=== PATIENT | male | born 1970 | race Caucasian/White ===

== ENCOUNTER 2022-10-23 21:55 | Emergency (ER) | payer SELFPAY ==
[2022-10-23 22:52] VITALS: BP 167/93; PULSE 93; RESP 20; TEMP 36.2; O2SAT 98; BMI 29.0
--- NOTE | 2022-10-24 00:22 | ED.ANXIETY ---
HPI - Anxiety General Chief Complaint: Anxiety Stated Complaint: Anxiety Time Seen by Provider: 10/24/22 00:22 History of Present Illness HPI narrative: Patient is a 52-year-old gentleman who is going through a very difficult time with his father who is in a psychiatric facility. Patient has been extremely anxious but has not had any suicidal or homicidal ideation. He has not been using any excessive drugs or alcohol. He was seen at [place] [id number] several days gone given a small amount of Ativan the take b.i.d. and that has been very helpful. He does take Seroquel 200 mg twice a day. Patient states that he has psychiatry appointments coming up this coming week. He has no pain no injuries and otherwise feels well. Related Data Home Medications Medication Instructions Recorded Confirmed lorazepam 0.5 mg tablet (Ativan) 0.5 mg PO Q6H PRN 10/23/22 10/23/22 quetiapine 200 mg tablet (Seroquel) 200 mg PO QHS 10/23/22 10/23/22 Allergies Allergy/AdvReac Type Severity Reaction Status Date / Time No Known Drug Allergies Allergy Verified 10/23/22 22:48 Review of Systems Status of ROS: Reports: 10 or more systems reviewed and unremarkable except as noted in History and below [facility] Social History Smoking Status: Never smoker How often do you have a drink containing alcohol: never AUDIT-C Alcohol total score: 0 Non-prescribed substance use: denies use Exam Narrative: Exam Narrative: EXAM GENERAL: Patient appears comfortable and well. EYES: No scleral icterus. LYMPH: No supraclavicular or cervical lymphadenopathy. SKIN: Visible skin seen during exam normal or with benign process only. EXT: No dependent lower extremity pedal edema. HEART: Regular rate and rhythm with no murmurs, rubs, or gallops. LUNGS: Clear to auscultation bilaterally with no crackles or wheezes. ABD: Soft, non tender, non distended. PSYCH: Good eye contact, speech is not pressured. Const: Vital Signs, click to edit/add: Vital Signs - 24 hr 10/23/22 22:52 Temperature 97.1 F L Pulse Rate [Right Pulse Oximeter] 93 Respiratory Rate 20 Blood Pressure [Ri ght Upper Arm] 167/93 H Pulse Oximetry 98 Oxygen Delivery Me thod Room Air Course Course ED Course: Patient seen and examined. Vital Signs Vital signs: Initial Vital Signs Temperature 97.1 F L 10/23/22 22:52 Temperature Source Temporal Artery Scan 10/23/22 22:52 Pulse Rate 93 10/23/22 22:52 Pulse Rhythm Regular 10/23/22 22:52 Respiratory Rate 20 10/23/22 22:52 Blood Pressure 167/93 H 10/23/22 22:52 Blood Pressure Mean 117 H 10/23/22 22:52 Blood Pressure Position Sitting 10/23/22 22:52 Pulse Oximetry 98 10/23/22 22:52 Oxygen Delivery Method Room Air 10/23/22 22:52 Vital Signs Temperature 97.1 F L 10/23/22 22:52 Pulse Rate 93 10/23/22 22:52 Respiratory Rate 20 10/23/22 22:52 Blood Pressure 167/93 H 10/23/22 22:52 Pulse Oximetry 98 10/23/22 22:52 Oxygen Delivery Method Room Air 10/23/22 22:52 Temperature 97.1 F L 10/23/22 22:52 Pulse Rate 93 10/23/22 22:52 Respiratory Rate 20 10/23/22 22:52 Blood Pressure 167/93 H 10/23/22 22:52 Pulse Oximetry 98 10/23/22 22:52 Oxygen Delivery Method Room Air 10/23/22 22:52 MDM - Anxiety MDM Narrative Medical decision making narrative: Patient is a 52-year-old gentleman who is not suicidal or homicidal but is going through a very difficult time. He is looking for some bridging anxiolytics to get him through to his psychiatry appointment in the next several days. Patient is accompanied by his daughter who is very supportive. He is not interested in hurting himself or overdosing. I do think it is reasonable to give him Ativan 0.5 mg b.i.d. p.r.n. for the next 5-7 days well we get him in to see Psychiatry. He will return if symptoms worsen. Differential Diagnosis Differential diagnosis: Likely hyperventilation, panic disorder and acute anxiety Discharge Plan Discharge Clinical Impression: Acute anxiety Condition: Stable Instructions: Anxiety (ED) Additional Instructions: Ativan as directed Outpatient follow-up as directed Continue current medications. Activity Level: No Restrictions Discharge Diet: Regular Prescriptions: No Action quetiapine [Seroquel] 200 mg tablet 200 mg PO QHS lorazepam [Ativan] 0.5 mg tablet 0.5 mg PO Q6H PRN Stand Alone Forms: [employer] Info Instructions
== END 2022-10-24 00:52 | disposition home or self-care (01) ==
LOC: ED 10-24 00:38
PROVIDERS: Emergency Provider Internal Medicine
DX: F41.9 Anxiety disorder, unspecified (principal)
CPT/HCPCS: 99283; 99284

== ENCOUNTER 2022-10-24 09:31 | Emergency (ER) | payer OTHER, SELFPAY ==
[2022-10-24] VITALS (28 sets, daily range): BP systolic 124–181; BP diastolic 74–108; PULSE 81–122; RESP 12–25; TEMP 36.6–36.8; O2SAT 89–99; BMI 29.8
[2022-10-24] MEDS: OLANZapine 5 MG/ML inj IVP (09:36)
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
--- NOTE | 2022-10-24 09:40 | ED.NURSE ---
Pt arrives via EMS in physical restraints with [place] police escort. Pt is disoriented, somewhat rousable to voice. Pt follows simple commands but is generally resistive to cares and impulsively pulls away from staff when awake. MD Pleitez in room to examine pt. Decision to continue physical restraints at this time. Vitals monitoring, teletypesetter monitor, and end tidal applied to pt.
[2022-10-24] MEDS: 0.9 % SODIUM CHLORIDE 500 ML 500 ML IV (09:49)
[2022-10-24 09:59] LABS: Eosinophils Absolute Auto 0.04 K/uL (0.00-0.50); Eosinophils Percent Auto 0.6 % (0.0-7.0); Hematocrit 38.7 % (37.0-53.0); Hemoglobin* 13.9 gm/dL (13.5-17.5); Immature Granulocytes Abs Auto 0.01 K/uL (0.00-0.30); Immature Granulocytes Pct Auto 0.2 %; Lymphocytes Percent Auto 17.5 % (20-44); Mean Corpuscular HGB Conc 36 gm/dL (32-36); Mean Corpuscular Hemoglobin 31 pg (26-34); Mean Corpuscular Volume 86 fL (80-100); Monocytes Percent Auto 6.3 % (0.0-11.0); Neutrophils Percent Auto 75.4 % (42.0-72.0); Platelet Count* 213 K/uL (140-440); RDW Coefficient of Variation % 11.4 % (11.5-15.5); Red Blood Count 4.51 m/uL (4.30-5.90); White Blood Count* 6.35 K/uL (4.50-11.00)
--- NOTE | 2022-10-24 10:00 | ED.NURSE ---
Pt somewhat rousable to verbal at this time. Pt informed he needed to provide urine sample per MD orders. Pt acknowledged this, pt willing to try to urinate into urinal in the bed. Pt unable to void into urinal, pt fell asleep and snoring again. Pt roused again, informed that MD Pleitez ordered a catheter placement for a urine sample if pt could not provide a sample. Pt acknowledged this, narrative writer informed pt that catheter would be placed at this time to retrieve a urine sample. Pt again acknowledged this. Carpet Sewing Machine Operator placed straight cath, drained bladder, urine sample collected and sent to lab.
[2022-10-24 10:04] LABS: Slide Review Reflex No
--- NOTE | 2022-10-24 10:10 | ED.NURSE ---
Pt rousable to verbal, able to answer questions at this time. Pt states he thinks he is in the psych gentile, states he does not remember what happened today, states he believes it is Wednesday in the month of June. Pt reoriented and informed he is at the [facility] ER, the day is Wednesday, month is October. Pt agreeable to cooperate with staff and remain calm at this time. Hearing Therapist released Left Leg restraint, informed pt further restraints will be released with demonstrated calm and cooperative behavior.
[2022-10-24 10:20] LABS: Albumin* 4.5 g/dL (3.3-5.0); Chloride* 103 mmol/L (96-114)
[2022-10-24 10:21] LABS: Amphetamine Screen Urine Negative (Negative); Barbiturate Screen Urine Negative (Negative); Benzodiazepines Screen Urine POSITIVE (Negative); Cannabinoid Screen Urine Negative (Negative); Cocaine Screen Urine Negative (Negative); Methadone Screen Urine Negative (Negative); Methamphetamines Screen Urine Negative (Negative); Opiate Screen Urine Negative (Negative); Oxycodone Screen Urine Negative (Negative); Phencyclidine Screen Urine Negative (Negative); Tricyclic Antidepressant Urine POSITIVE (Negative)
[2022-10-24 10:21] LABS: Potassium* 3.1 mmol/L (3.6-5.1); Sodium* 137 mmol/L (135-149)
[2022-10-24 10:23] LABS: Creatinine* 0.7 mg/dL (0.5-1.5); Est. Creatinine Clearance* 135.49; Estimated Glomerular Filt Rate 111 ml/min
[2022-10-24 10:24] LABS: Alanine Aminotransferase* 36 U/L (4-50); Alkaline Phosphatase* 65 U/L (40-150); Anion Gap 7 mEq/L (7-15); Aspartate Amino Transferase* 35 U/L (12-35); Bilirubin Total* 1.1 mg/dL (0.1-1.5); Blood Urea Nitrogen* 10 mg/dL (7-30); Calcium* 9.3 mg/dL (8.4-10.6); Carbon Dioxide* 27 mmol/L (20-32); Glucose* 140 mg/dL (60-115)
--- NOTE | 2022-10-24 10:25 | ED.NURSE ---
Pt rousable to voice, has remained calm and cooperative since Left Leg was released from restraints. Pt agreeable to continue to remain calm and cooperative. Pt Right Arm released from restraints at this time.
[2022-10-24 10:28] LABS: Acetaminophen* < 10.0 ug/mL (10.0-30.0); C Reactive Protein* < 0.5 mg/dL (0.5-1.0); Ethanol* < 0.01 % (0.01-0.03)
--- NOTE | 2022-10-24 10:40 | ED.NURSE ---
Addendum entered by Adelso Forrester RN 10/24/22 10:50: MD Pleitez notified. Original Note: Pt is easily rousable to voice, continues to be agreeable to cooperate and remain calm. Pt released from all remaining restraints at this time.
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
[2022-10-24 10:56] LABS: SARS PCR* Negative SARS-CoV-2 (Negative)
[2022-10-24 11:09] LABS: Salicylate* < 1.0 mg/dL (1.0-10)
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
--- NOTE | 2022-10-24 13:30 | ED.NURSE ---
Patient ate all of lunch. Up to bathroom in unit independently.
--- NOTE | 2022-10-24 13:44 | ED.NURSE ---
Participating with JAN.
[2022-10-24] MEDS: OLANZapine 5 MG TAB.RAPDIS PO ×3 (14:58→22:10)
[2022-10-24] MEDS: LORazepam 1 MG TABLET PO ×2 (15:00→22:10)
--- NOTE | 2022-10-24 15:50 | ED.NURSE ---
Daughter Violeta states she will be available anytime to come and sit with her father as needed. Reassurance given to keep her in the loop on further cares and communications.
--- NOTE | 2022-10-24 16:22 | ED.NURSE ---
Home medications reconciled and reordered. Patient accepted both Zyprexa and Ativan for feeling of increased anxiety.
--- NOTE | 2022-10-24 19:33 | ED.NURSE ---
Patient ordered dinner. Has been up to the bathroom independently a few times. Patient is calm and cooperative. Does see to struggle to keep still despite him stating that he would like to take a nap. Absolutely no aggression displayed, expressed desire for mental health placement.
--- NOTE | 2022-10-24 20:40 | ED.NURSE ---
Pt requesting something to eat. Pt provided with turkey sandwich, jello, and crackers.
[2022-10-24] MEDS: QUETIAPINE 100 MG TABLET 200 MG PO (21:02)
[2022-10-24] MEDS: LORazepam 0.5 MG TABLET PO (21:03)
--- NOTE | 2022-10-24 21:03 | ED.NURSE ---
pt taken to [facility] for shower via wheelchair, escorted by RNAdelso.
--- NOTE | 2022-10-24 21:18 | ED.NURSE ---
Patient went down to the floor with Neftaly Macedo and RN.
--- NOTE | 2022-10-24 21:28 | ED.NURSE ---
Pt escorted down to M/S room for a shower. Pt cooperative during shower escort to M/S and back to room.
--- NOTE | 2022-10-24 21:49 | ED.NURSE ---
pt give warm blankets. Door cracked per pt request. Pt attempting to get some sleep.
--- NOTE | 2022-10-24 22:11 | ED.NURSE ---
Pt seen on video monitoring crawling around on the floor for several minutes, laying on the floor behind the bed and taking his shirt on and off. Pt then suddenly stood up and walked out of the room heading towards the ER exit. Pt states I'm leaving. Batch Or Continuous Still Operator informed pt he could not leave at this time. Pt states [place] Batch Or Continuous Still Operator informed pt that he had been placed on a 72 hour hold this morning by the ED MD and was not free to leave at this time. Pt again asked, So [place]'s not [place] free [place] then?. Pt informed he could not leave due to the 72 hour hold. Batch Or Continuous Still Operator asked pt to return to his room at this time and stated the MD would come and speak with him. Pt asked if he could call his daughter, loan underwriter offered to call pt's daughter and let her talk to him on the phone. Pt then did agree to return to his room. As pt entered his room, pt stated Why don't you just shoot me?. RN attempted to call pt's daughter, she did not answer. MD Palmer updated about pt's agitation and elopement attempt. ordered additional PO meds for pt. Pt agreeable at this time to take PO meds from loan underwriter. While waiting for meds, pt stated to loan underwriter It's so hard to rest when the cameras in the room are pointing at you, following your eyes, draining your energy. Pt then stated You may as well murder me. Pt informed that staff would not do that. Oral meds provided to pt, pt did take PO meds. Pt then took his shirt off and lay on the floor in the corner of his room again.
--- NOTE | 2022-10-24 22:23 | ED.NURSE ---
Pt's daughter Violeta called back to speak with pt, pt provided with portable phone to speak with her. While on the phone, pt came out of the room briefly and stated that the personal shirt he has been wearing is too small and he needed to throw it away. Pt then threw his shirt in the garbage can near the room. Pt spoke with his daughter for several minutes and then ended the call.
--- NOTE | 2022-10-24 22:40 | ED.NURSE ---
Notice of 72 hour hold patient rights read to pt, pt provided with copy of notice of rights form.
--- NOTE | 2022-10-24 23:33 | ED.NURSE ---
Pt has been laying in bed for approx 20 mins now, appears to be resting at this time.
--- NOTE | 2022-10-25 04:18 | ED.NURSE ---
pt awake, ambulated to restroom.
--- NOTE | 2022-10-25 08:19 | ED.NURSE ---
Updated daughter via phone. Patient eating breakfast.
--- NOTE | 2022-10-25 08:50 | ED.NURSE ---
Contacted all mental health unit technical operations vice president list, all state at capacity or that patient does not fit criteria.
[2022-10-25] MEDS: OLANZapine 5 MG TAB.RAPDIS 10 MG PO (10:22)
[2022-10-25] MEDS: AMLODIPINE 5 MG TABLET 2.5 MG PO (10:23)
[2022-10-25] MEDS: lisinopriL 10 MG TABLET PO (10:23)
--- NOTE | 2022-10-25 11:55 | ED.NURSE ---
Patient finished telehealth DEC assessment.
[2022-10-25] MEDS: LORazepam 0.5 MG TABLET PO (12:46)
--- NOTE | 2022-10-25 18:38 | ED.NURSE ---
Reviewed all discharge instructions with patient and daughter. No questions. Inventory sheet signed.
== END 2022-10-25 18:40 | disposition home or self-care (01) ==
PROVIDERS: Emergency Provider Family Medicine
DX: F43.11 Post-traumatic stress disorder, acute (principal); F41.9 Anxiety disorder, unspecified; Z72.811 Adult antisocial behavior
CPT/HCPCS: 36415; 80048; 80076; 80143; 80179; 80306; 82077; 85025; 86140; 87635; 93005; 94761; 96374; 99284; 99285; A9270; J7120; S0166